=== PATIENT | male | born 1990 | race Caucasian/White ===

== ENCOUNTER 2018-05-15 13:31 | Day surgery (SDC) | payer OTHER ==
[2018-05-15] MEDS ORDERED: ceFAZolin 2 GM/DEXTROSE 100 ML IV ONE (13:54)
[2018-05-15] MEDS ORDERED: LR 1,000 ML IV ONE (13:55)
[2018-05-15] MEDS ORDERED: LIDOCAINE 1% 2 ML INJ ID PRN (13:55)
[2018-05-15] MEDS ORDERED: BUPIVACAINE 0.5% 30 ML SDV ONE ×2 (14:31→16:29)
[2018-05-15] MEDS ORDERED: MIDAZOLAM 2 MG/2 ML VIAL IVP ONE (18:11)
[2018-05-15] MEDS ORDERED: LIDOCAINE 2% 100 MG/5 ML SYR ONE (18:19)
[2018-05-15] MEDS ORDERED: fentaNYL 250 MCG/5 ML INJ ONE (18:20)
[2018-05-15] MEDS ORDERED: PROPOFOL 200 MG/20 ML VIAL ONE (18:20)
--- NOTE | 2018-05-15 18:24 | PDHPUP ---
History & Physical Update H&P update statement: This history and physical update is based on an assessment of the patient which was completed after admission or registration (within 24 hours), but prior to the surgery/procedure. H&P update: H&P reviewed & patient examined, no change in patient's condition since H&P completed
[2018-05-15] MEDS ORDERED: PHENYLEPHRINE HCL 100 MCG/ML SYR IVP PRN (18:36)
[2018-05-15] MEDS ORDERED: LR 500 ML IV PRN (18:36)
[2018-05-15] MEDS ORDERED: METOCLOPRAMIDE 10 MG/2 ML VIAL IVP PRN (18:36)
[2018-05-15] MEDS ORDERED: MEPERIDINE 25 MG/0.5 ML AMP IVP PRN (18:36)
[2018-05-15] MEDS ORDERED: oxyCODONE IR 5 MG TAB PO PRN (18:36)
[2018-05-15] MEDS ORDERED: ONDANSETRON 4 MG/2 ML VIAL IVP PRN (18:36)
[2018-05-15] MEDS ORDERED: fentaNYL 100 MCG/2 ML INJ IVP PRN (18:36)
[2018-05-15] MEDS ORDERED: HYDROmorphONE/DILAUDID 2 MG/ML INJ IVP PRN (18:36)
[2018-05-15] MEDS ORDERED: NALOXONE HCL 0.4 MG/ML INJ IVP PRN (18:36)
--- NOTE | 2018-05-15 18:38 | PDANEPAE ---
ANE Past Medical History - Cardiovascular History Hx Hypertension: No Hx Arrhythmias: No Hx Chest Pain: No Hx Coronary Artery / Peripheral Vascular Disease: No Hx CHF / Valvular Disease: No Hx Palpitations: No - Pulmonary History Hx COPD: No Hx Asthma/Reactive Airway Disease: No Hx Recent Upper Respiratory Infection: No Hx Oxygen in Use at Home: No Hx Sleep Apnea: No Sleep Apnea Screening Result - Last Documented: Negative - Neurologic History Hx Cerebrovascular Accident: No Hx Seizures: No Hx Dementia: No Neurologic History Comment: hx of spinal fusion for severe scoliosis - Endocrine History Hx Diabetes: No - Renal History Hx Renal Disorders: No - Liver History Hx Hepatic Disorders: No - Neurological & Psychiatric Hx Hx Neurological and Psychiatric Disorders: No - Cancer History Hx Cancer: No - Congenital Disorder History Hx Congenital Disorders: No - GI History Hx Gastrointestinal Disorders: No - Other Health History Other Health History: none - Chronic Pain History Chronic Pain: Yes (lower back at times) - Surgical History Prior Surgeries: spinal fusion d/t severe scoliosis. wisdom teeth. lasik eye surgery ANE Review of Systems Review of Systems: - Exercise capacity METS (RN): 6 METS ANE Patient History - Allergies Allergies/Adverse Reactions: No Known Allergies Allergy (Verified 05/14/18 15:27) - Home Medications Home Medications: NK [No Known Home Meds] 05/14/18 [Last Taken Unknown] - NPO status NPO Since - Liquids (Date): 05/15/18 NPO Since - Liquids (Time): 10:00 NPO Since - Solids (Date): 05/14/18 NPO Since - Solids (Time): 22:00 - Smoking Hx Smoking Status: Former smoker - Family Anes Hx Family Hx Anesthesia Complications: none ANE Labs/Vital Signs - Vital Signs Blood Pressure: 120/89 Heart Rate: 73 Respiratory Rate: 18 O2 Sat (%): 98 Height: 177.8 cm Weight: 62.596 kg ANE Physical Exam - Airway Mallampati Score: Class 1 Mouth exam: normal dental/mouth exam - Pulmonary Pulmonary: no respiratory distress, no rales or rhonchi, clear to auscultation - Cardiovascular Cardiovascular: regular rate and rhythym - ASA Status ASA Status: I
[2018-05-15] MEDS ORDERED: ONDANSETRON 4 MG/2 ML VIAL ONE (18:39)
[2018-05-15] MEDS ORDERED: DEXAMETHASONE 4 MG/ML VIAL ONE (18:39)
[2018-05-15] MEDS ORDERED: PHENYLEPHRINE HCL 100 MCG/ML SYR ONE (19:08)
[2018-05-15] MEDS ORDERED: oxyCODONE IR 5 MG TAB ONE (21:40)
[2018-05-15 22:21] VITALS: BP 122/63
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
--- NOTE | 2018-05-16 19:34 | POSTANESTH ---
Post Anesthetic Evaluation Cardiovascular Status: Normal, Stable Respiratory Status: Normal, Stable Level of Consciousness/Mental Status: Can Participate in Eval Pain Control: Adequate, Prn Tx Ordered Nausea/Vomiting Control: Adequate, Prn Tx Ordered Complications Possibly Related to Anesthesia: None Noted
== END 2018-05-15 22:20 | disposition home or self-care (01) ==
LOC: FSGY 13:31
PROVIDERS: ATTEND Orthopaedic Surgery Hand Surgery
DX: S62.615A Displaced fracture of proximal phalanx of left ring finger, initial encounter for closed fracture (principal); S62.617A Displaced fracture of proximal phalanx of left little finger, initial encounter for closed fracture; V18.0XXA Pedal cycle driver injured in noncollision transport accident in nontraffic accident, initial encounter; Y93.55 Activity, bike riding; Y92.89 Other specified places as the place of occurrence of the external cause; Z98.1 Arthrodesis status
CPT/HCPCS: C1713; J0690; J1100; J2001; J2250; J2370; J2405; J2704; J3010

== ENCOUNTER → 2018-05-26 | Outpatient (CLI) | payer OTHER | LOC: BMCIMAGING 13:29 | PROVIDERS: ATTEND Orthopaedic Surgery Hand Surgery | DX: S62.617D Displaced fracture of proximal phalanx of left little finger, subsequent encounter for fracture with routine healing (principal); S62.615D Displaced fracture of proximal phalanx of left ring finger, subsequent encounter for fracture with routine healing ==

== ENCOUNTER → 2018-06-17 | Outpatient (CLI) | payer OTHER | LOC: BMCIMAGING 08:54 | PROVIDERS: ATTEND Orthopaedic Surgery Hand Surgery | DX: S62.615D Displaced fracture of proximal phalanx of left ring finger, subsequent encounter for fracture with routine healing (principal); S62.617D Displaced fracture of proximal phalanx of left little finger, subsequent encounter for fracture with routine healing; S52.131D Displaced fracture of neck of right radius, subsequent encounter for closed fracture with routine healing ==

== ENCOUNTER → 2018-07-14 | Outpatient (CLI) | payer OTHER | LOC: BMCIMAGING 16:20 | PROVIDERS: ATTEND Orthopaedic Surgery Hand Surgery | DX: S62.615D Displaced fracture of proximal phalanx of left ring finger, subsequent encounter for fracture with routine healing (principal); S62.617D Displaced fracture of proximal phalanx of left little finger, subsequent encounter for fracture with routine healing ==